=== PATIENT | male | born 1955 | race African-American/Black ===

== ENCOUNTER 2020-08-02 14:42 | Emergency (ER) | payer MEDICAID ==
[~2020-08-02] VITALS: Ht 177.8 cm; Wt 68.0 kg
[2020-08-02 14:50] VITALS: BP 138/81
[2020-08-02] MEDS ORDERED: KETOROLAC TROMETHAMINE 15 MG/ML VIAL ONE (15:07)
--- NOTE | 2020-08-02 15:11 | NUR ---
VELCRO WRIST SPLINT APPLIED.
--- NOTE | 2020-08-02 15:18 | NUR ---
Patient given written and verbal discharge instructions. Patient verbalizes understanding of instructions. Patient is ambulatory with steady gait. Refuses offer of retirement placement. Patient given list of available shelters in surrounding area.
[2020-08-02] MEDS ORDERED: KETOROLAC TROMETHAMINE INJ 60 MG/2 ML VIAL IM ONE (15:30)
== END 2020-08-02 15:30 | disposition home or self-care (01) ==
LOC: ER 14:47
DX: M25.532 Pain in left wrist (principal); M25.531 Pain in right wrist; M54.40 Lumbago with sciatica, unspecified side; G89.29 Other chronic pain; Y08.89XA Assault by other specified means, initial encounter; Y93.89 Activity, other specified; Y92.89 Other specified places as the place of occurrence of the external cause; Y99.8 Other external cause status
CPT/HCPCS: 29125; 96372; 99283; J1885

== ENCOUNTER 2020-09-14 04:51 | Emergency (ER) | payer MEDICAID ==
[~2020-09-14] VITALS: Ht 177.8 cm; Wt 63.5 kg
[2020-09-14 04:54] VITALS: BP 138/81
[2020-09-14] MEDS ORDERED: IBUPROFEN 600 MG TABLET ONE (05:08)
[2020-09-14] MEDS ORDERED: ACETAMINOPHEN ES 500 MG TABLET ONE (05:08)
--- NOTE | 2020-09-14 05:16 | NUR ---
Pt refused medications as ordered by md. also refused written and verbal discharge instructions. . Patient is ambulatory with steady gait. Refuses offer of skilled nursing placement. has proper clothes on. refused snacks. Patient discharged to home in stable condition.
[2020-09-14] MEDS ORDERED: IBUPROFEN 600 MG TABLET PO ONE (05:30)
[2020-09-14] MEDS ORDERED: ACETAMINOPHEN ES 500 MG TABLET PO ONE (05:30)
== END 2020-09-14 05:19 | disposition home or self-care (01) ==
LOC: ER 04:51
DX: M54.30 Sciatica, unspecified side (principal); F17.200 Nicotine dependence, unspecified, uncomplicated

== ENCOUNTER 2021-01-14 01:40 | Emergency (ER) | payer MEDICAID ==
[~2021-01-14] VITALS: Ht 177.8 cm; Wt 64.0 kg
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
--- NOTE | 2021-01-14 02:06 | NUR ---
PT ON POX SATURATING 90%. PLACED ON 2L O2 VIA NC. SATURATING 96%
[2021-01-14] MEDS ORDERED: oxyCODONE/APAP (5/325 MG) 1 UDTAB TABLET ONE (02:10)
[2021-01-14] MEDS ORDERED: OXYC-128 PO (02:12)
[2021-01-14] MEDS ORDERED: oxyCODONE/APAP (5/325 MG) 1 UDTAB TABLET PO ONE (02:30)
--- NOTE | 2021-01-14 02:57 | NUR ---
PT REFUSED TO SIGN HOMELESS DISCHARGE
--- NOTE | 2021-01-14 02:58 | NUR ---
Patient discharged to home in stable condition. Written and verbal after care instructions given. Patient verbalizes understanding of instruction. Pt ambulatory with a steady gait
--- NOTE | 2021-01-14 02:58 | NUR ---
Iveth gonsalez in [facility] - 01/14/21 at 0302 by KOREY PT REFUSED TO SIGN HOMELESS DISCHARGE
[2021-01-14 02:59] VITALS: BP 128/82
== END 2021-01-14 02:58 | disposition home or self-care (01) ==
LOC: ER 01:44
DX: S40.012A Contusion of left shoulder, initial encounter (principal); R51.9 Headache, unspecified; F17.210 Nicotine dependence, cigarettes, uncomplicated; G89.29 Other chronic pain; F10.10 Alcohol abuse, uncomplicated; Y90.9 Presence of alcohol in blood, level not specified; Z59.0 Homelessness; Z79.899 Other long term (current) drug therapy; W18.39XA Other fall on same level, initial encounter; Y93.89 Activity, other specified; Y92.89 Other specified places as the place of occurrence of the external cause; Y99.8 Other external cause status
CPT/HCPCS: 70450-TC; 73030-TC

== ENCOUNTER 2021-01-17 09:47 | Emergency (ER) | payer MEDICAID ==
[~2021-01-17] VITALS: Ht 177.8 cm; Wt 51.7 kg
[~2021-01-17 09:47] MED LIST: OXYC-128 PO
[2021-01-17 09:59] VITALS: BP 113/61
--- NOTE | 2021-01-17 10:12 | NUR ---
PATIENT PROVIDED W SANDWICH AND GATORADE. TOLERATING PO WELL.
--- NOTE | 2021-01-17 10:33 | NUR ---
DORENE MORRIS SPEAKING W PATIENT
--- NOTE | 2021-01-17 10:40 | NUR ---
Patient given written and verbal discharge instructions. Patient verbalizes understanding of instructions. Patient is ambulatory with steady gait. Refuses offer of intermediate placement. Patient given list of available shelters in surrounding area. Name band removed. All belongings with patient. In proper clothing upon discharge.
--- NOTE | 2021-01-17 11:15 | NUR ---
"SS Consult : SS Consult requested for homelessness. The pt. is a 65-year old Black male that came to the hospital today complaining of being cold and needing resources. SW met with pt. and pt. remained calm & cooperative throughout assessment. The pt. is alert & oriented x 4 and appears unkempt. The pt.s mood & speech are WNL. Per pt. he has been experiencing homelessness for about 2 years. Per pt. he normally resides near [facility]. Pt. stated that he needs a place to shower and sleep. SW offered pt. long term placement and pt. accepted. Per pt. he received SSDI monthly. SW explored pt.s drug & ETOH use. Per pt., he drinks liquor about bi-monthly stating, I cant afford it. Per pt. he also smokes weed, when I can. Pt. is ambulatory and able to plan for self-care. Pt. denies any Hx. of mental health issues. Pt. denies SI/HI & denies hallucinations. SW provided pt. with clothing, and medical staff provided pt. with meal. Plan: DORENE called [facility] Program: [[address] [place] [address]; [phone]] and referred pt. for a male bed. [facility] stated they will hold a bed for this patient. Noted. DORENE printed bus directions for pt. to get to [facility]. Patient agreeable & thanked SW. Patient signed homeless waiver & it was placed in pt.s chart. SW provided pt. with the following resources & patient accepted them: Substance Abuse resources provided included: [facility] Substance Abuse Self-Helpline ([facility]) ; [facility] [address] [facility]. [place] [address] ; [facility] [address] [facility] [address] ; [facility] [address] [facility] [place] [address] ; [facility] [place] [address] [facility] [address] ; [facility] [address] [facility] [address] ; [facility] [address] [facility] [id number] ; [facility] Substance Abuse Helpline([facility] ; [facility] ; [place] [place]; [facility]; [facility] [place]; [facility] Hiren Sanchez; [place] [facility]; [facility]; [facility]; [facility], [facility]. [facility]; Alcoholics Anonymous -SFV; Nv-Jcvx-Tqejgkl ; Marijuana Anonymous -SFV; Narcotics Anonymous www.na.org; Year-round shelters: [place] [facility] [address] [place], [place] [id number] ; [place] [facility] [address] [place] [address]; [place] [facility] [address] [facility] [address] Winter Shelters: [place] Provider: [facility] [place] Address: [address] [facility] [place], [address] # of Beds: 47 Population Served: [facility] 6 | [facility] Liliana Arciniega [place] Provider: [facility] Address: [address] [facility], [address] # of Beds: 66 Population Served: [employer] [place] Provider: First [facility] Serve Address: [address] [facility], [address] # of Beds: 56 Population Served: Aayush Fong Provider: SSNathan/[facility] Address: [address] [facility], [address] # of Beds: 49 Population Served: [facility] 8 | [facility] Provider: First [facility] Serve Address: [address] [place], [place] [address]Alex [place], [address] # of Beds: 37 Population Served: [facility] Hy[facility]: [facility]: [address] [place] ; [facility] [facility] [address] [facility] ; [facility] [address], [place] . Food Resources: [place] [facility] at [facility]- [address] [facility]; Meet Each Need with [facility]ign[facility] ([facility]) [address] [facility]; [facility] [address] [facility]; [facility] [address] [facility]. Mental Health resources provided: [facility] [address] [place], [place] [id number] ; [facility] [employer] [address] [facility] [address], [place], [place] [id number] ; [facility] [address] [place], [place] [id number] ; [facility] [place], [place] [id number] Healthcare Clinics: [facility] [address] [facility], [address] [place]. [place] ; [facility] [address] [facility] [address] [place] [address]; [facility] [address] [facility]. [place] [id number] [phone]"
== END 2021-01-17 10:44 | disposition home or self-care (01) ==
LOC: ER 09:48
DX: Z59.0 Homelessness (principal); G89.29 Other chronic pain; M79.673 Pain in unspecified foot; F10.10 Alcohol abuse, uncomplicated; F17.200 Nicotine dependence, unspecified, uncomplicated; Y90.9 Presence of alcohol in blood, level not specified; Z79.899 Other long term (current) drug therapy